=== PATIENT | male | born 1965 | race Caucasian/White ===

== ENCOUNTER 2019-07-19 18:49 | Inpatient (IN) | payer OTHER, MEDICARE ==
[~2019-07-19] VITALS: Ht 177.8 cm; Wt 66.4 kg
--- NOTE | ~2019-07-19 | EKG ---
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
[2019-07-19 19:02] VITALS: BP 161/88
[2019-07-19 19:15] VITALS: BP 147/89
[2019-07-19 19:20] LABS: BASO # 0.1 10*3/uL (0.0-0.1); BASO % 0.8 % (0.0-1.0); EOS # 0.1 10*3/uL (0.0-0.4); EOS % 1.4 % (1.0-4.0); HEMATOCRIT 45.5 % (42.0-52.0); HEMOGLOBIN 16.3 g/dl (14.0-18.0); LYMPH % 44.9 % (27.0-41.0); MEAN CELL VOLUME 100.9 fl (80.0-94.0); MEAN CORPUSCULAR HGB 36.1 pg (27.0-31.0); MEAN CORPUSCULAR HGB CONC 35.8 g/dl (33.0-37.0); MEAN PLATELET VOLUME 9.4 fl (9.6-12.3); MONO # 0.6 10*3/uL (0.1-1.0); MONO % 8.5 % (3.0-9.0); NEUT # 2.9 10*3/uL (2.3-7.9); NEUT % 44.2 % (47.0-73.0); PLATELET COUNT AUTOMATED 232 10*3/uL (130-400); RED BLOOD COUNT 4.51 10*6/uL (4.50-5.90); WHITE BLOOD COUNT 6.6 10*3/uL (4.8-10.8)
[2019-07-19 19:30] LABS: ACT PARTIAL THROMBO TIME 23.9 SECONDS (20.0-32.1); INTERNATIONAL NORM RATIO 0.9 (2.0-3.5)
[2019-07-19 19:36] LABS: ALBUMIN 3.7 gm/dl (3.1-4.5); ALKALINE PHOSPHATASE 68 U/L (45-117); BUN 9 mg/dl (7-24); CHLORIDE 103 mmol/L (98-107); POTASSIUM 2.9 mmol/L (3.5-5.1); SGOT/AST 25 IU/L (3-35); SGPT/ALT 55 U/L (12-78); SODIUM 138 mmol/L (136-145); TOTAL PROTEIN 7.5 gm/dL (6.4-8.2)
[2019-07-19 19:41] LABS: TROPONIN I < 0.015 ng/ml (<0.045)
[2019-07-19 20:00] VITALS: BP 132/77
--- NOTE | 2019-07-19 20:00 | NUR ---
PT RETURNED FROM CT.FAMILY AT BEDSIDE.FLUIDS CONTINUE TO INFUSE.
[2019-07-19 20:08] LABS: BILIRUBIN NEGATIVE (NEGATIVE); BLOOD TRACE-LYSED (NEGATIVE); CLARITY CLEAR (CLEAR); COLOR YELLOW (YELLOW); GLUCOSE NEGATIVE (NEGATIVE); KETONE NEGATIVE (NEGATIVE); LEUKO ESTERASE NEGATIVE (NEGATIVE); NITRITE NEGATIVE (NEGATIVE); SPECIFIC GRAVITY <= 1.005 (1.005-1.030); UROBILINOGEN 0.2 E.U./dl (0.2-1.0)
[2019-07-19 20:16] LABS: URINE AMPHETAMINES < 1000 (1000ng/ml); URINE BARBITURATES < 200 (200ng/ml); URINE BENZODIAZEPINES < 200 (200ng/ml); URINE CANNABINOIDS (THC) > 50 (50ng/ml); URINE COCAINE < 300 (300ng/ml); URINE METHADONE < 300 (300ng/ml); URINE OPIATES < 300 (300ng/ml)
[2019-07-19 20:23] LABS: URINE PHENCYCLIDINE < 25 (25ng/ml)
[2019-07-19 20:27] LABS: RBC 0-2 rbc/hpf (0-2); WBC 0-2 wbc/hpf (0-5)
[2019-07-19 20:44] VITALS: BP 128/84
[2019-07-19 21:26] VITALS: BP 143/93
--- NOTE | 2019-07-19 22:05 | NUR ---
SECOND BAG NS INITIATED DUE TO PT C/O OF IV BURNING WITH INFUSION OF POTASSIUM.POTASSIUM INFUSING @ 35ML/HR AND NS INFUSING @ 150ML/HR.
[2019-07-19 22:10] VITALS: BP 152/80
--- NOTE | 2019-07-19 22:10 | NUR ---
A 53, admitted to , under the services of SUMIT Siegel DO with a diagnosis of DIZZINESS, HYPOKALEMIA. Chief complaint is DIZZINESS. Patient arrived via bed from ER. Monitor applied. Initial assessment completed. Vital signs taken and recorded. SUMIT SIEGEL DO notified of admission to the unit. Orders received. See assessment for past medical history, medications and allergies. Patient and/or family oriented to unit. [facility] visitation policy reviewed. Clothing/patient valuable form completed. BART LONG
--- NOTE | 2019-07-19 22:45 | NUR ---
PT DENIES TAKING ANY HOME MEDICATIONS.
--- NOTE | 2019-07-19 23:18 | NUR ---
24 HR chart check completed.
[2019-07-20 06:04] LABS: BASO % 0.8 % (0.0-1.0); EOS # 0.1 10*3/uL (0.0-0.4); HEMATOCRIT 43.1 % (42.0-52.0); HEMOGLOBIN 15.1 g/dl (14.0-18.0); LYMPH # 2.1 10*3/uL (1.3-4.4); LYMPH % 42.9 % (27.0-41.0); MEAN CELL VOLUME 103.6 fl (80.0-94.0); MEAN CORPUSCULAR HGB 36.3 pg (27.0-31.0); MEAN PLATELET VOLUME 9.6 fl (9.6-12.3); MONO # 0.6 10*3/uL (0.1-1.0); MONO % 11.1 % (3.0-9.0); NEUT # 2.2 10*3/uL (2.3-7.9); NEUT % 44.2 % (47.0-73.0); PLATELET COUNT AUTOMATED 201 10*3/uL (130-400); RED BLOOD COUNT 4.16 10*6/uL (4.50-5.90); RED CELL DISTRI WIDTH 12.2 % (0-14.5)
[2019-07-20 06:20] LABS: ALBUMIN 3.1 gm/dl (3.1-4.5); ALKALINE PHOSPHATASE 56 U/L (45-117); BUN 7 mg/dl (7-24); CHLORIDE 108 mmol/L (98-107); CHOLESTEROL 150 mg/dL (<200); CREATININE 0.77 mg/dL (0.70-1.30); HDL CHOLESTEROL 51 mg/dl (40-60); LDL CHOLESTEROL 61 mg/dL (9-159); PHOSPHOROUS 2.5 mg/dL (2.5-4.9); POTASSIUM 3.6 mmol/L (3.5-5.1); SGOT/AST 25 IU/L (3-35); SGPT/ALT 44 U/L (12-78); SODIUM 141 mmol/L (136-145); TOTAL PROTEIN 6.2 gm/dL (6.4-8.2); TRIGLYCERIDES 188 mg/dl (<150); VLDL CHOLESTEROL 38 mg/dL (6-40)
[2019-07-20 08:19] LABS: VITAMIN D, 25-HYDROXY 26.6 ng/mL (30-100)
[2019-07-20] MEDS ORDERED: MECLIZINE HCL25 M2 PO (09:39)
--- NOTE | 2019-07-20 11:01 | NUR ---
Discharge instructions reviewed with patient/family. Patient receptive and verbalizes understanding. Follow-up care arranged. Written instructions given to patient/. VEENA HALL
--- NOTE | 2019-07-20 11:08 | NUR ---
Discharged in care of with dc instructions, prescriptions and belongings.
== END 2019-07-20 11:08 | disposition home or self-care (01) | DRG 149 ==
LOC: ED 18:49 → EDHOLD 21:01 → 4E 21:39
PROVIDERS: Emergency Medicine; Internal Medicine; Physician Assistant; ADMIT Family Medicine
DX: R42 Dizziness and giddiness (principal); E87.6 Hypokalemia; R03.0 Elevated blood-pressure reading, without diagnosis of hypertension; F12.10 Cannabis abuse, uncomplicated; E55.9 Vitamin D deficiency, unspecified; E53.8 Deficiency of other specified B group vitamins; R73.9 Hyperglycemia, unspecified; Z86.73 Personal history of transient ischemic attack (TIA), and cerebral infarction without residual deficits; Z88.5 Allergy status to narcotic agent; Z82.49 Family history of ischemic heart disease and other diseases of the circulatory system